=== PATIENT | female | born 1980 | race African-American/Black ===

== ENCOUNTER 2016-06-13 04:12 | Day surgery (SDC) | payer BC ==
[~2016-06-13] VITALS: Ht 149.9 cm; Wt 82.0 kg
[2016-06-13] MEDS ORDERED: ACETAMINOPHEN 325MG TABLET PO ONE (04:45)
[2016-06-13 05:17] LABS: BASOPHILS % 0.7 % (0.0-2.0); EOSINOPHILS % 0.4 % (0.0-5.0); HEMATOCRIT. 31.5 % (36.0-48.0); HEMOGLOBIN. 9.9 g/dL (12.0-16.0); LYMPHOCYTES % 24.6 % (20.0-50.0); MEAN CORPUSCULAR HEMOGLOBIN 19.7 pg (28.0-32.0); MEAN CORPUSCULAR HGB CONC 31.4 g/dL (31.0-37.0); MEAN CORPUSCULAR VOLUME 62.7 fL (81.0-99.0); MEAN PLATELET VOLUME 7.3 fl (7.4-10.4); MONOCYTES % 8.1 % (2.0-8.0); NEUTROPHILS % 66.2 % (40.0-76.0); PLATELET 341 x1000/uL (130-400); RED BLOOD CELL COUNT 5.03 mill/uL (4.2-5.4); RED CELL DISTRIBUTION WIDTH 16.5 % (11.6-14.6); WHITE BLOOD COUNT 7.8 x1000/uL (4.5-11.0)
[2016-06-13 05:21] LABS: INR 1.1
[2016-06-13 05:24] LABS: DIFFERENTIAL COMMENT 1
[2016-06-13 05:25] LABS: ADD RBC MORPHOLOGY YES
[2016-06-13 05:28] LABS: ALANINE AMINOTRANSFERASE 17 IU/L (13-61); ALBUMIN 3.4 g/dL (3.4-5.0); ANION GAP 12; CALCIUM 8.6 mg/dL (8.5-10.1); CARBON DIOXIDE 27 mEq/L (21-32); CHLORIDE 105 mEq/L (98-107); INDEX HEMOLYSI 1 (1-3); INDEX ICTERIC 1 (1-4); INDEX LIPEMIC 1 (1-3); UREA NITROGEN BLOOD 11 mg/dL (7-21); eGFR > 60 mL/min (>60)
[2016-06-13 05:42] LABS: CLARITY URINE CLEAR (CLEAR); COLOR URINE YELLOW (YELLOW); GLUCOSE URINE NEGATIVE (NEGATIVE); KETONES URINE NEGATIVE (NEGATIVE); LEUKOCYTE ESTERASE URINE NEGATIVE (NEGATIVE); NITRITE URINE NEGATIVE (NEGATIVE); OCCULT BLOOD URINE 1+ (NEGATIVE); PROTEIN URINE NEGATIVE (NEGATIVE); SPECIFIC GRAVITY URINE 1.017 (1.005-1.030)
[2016-06-13 05:56] LABS: HYPOCHROMASIA 1+; PLATELET ESTIMATE NORMAL
[2016-06-13 06:12] LABS: SQUAMOUS EPITHELIAL CELL URINE FEW /lpf (RARE/1+)
[2016-06-13 06:13] LABS: BACTERIA URINE NONE SEEN; RBC URINE 0-2 /hpf (0-2); WBC URINE 0-2 /hpf (0-2)
[2016-06-13] MEDS ORDERED: SODIUM CHLORIDE 0.9% 1,000 ML IV ONE (07:06)
[2016-06-13 08:24] LABS: HEMATOCRIT 31.4 % (36.0-48.0); HEMOGLOBIN 9.8 g/dL (12.0-16.0); MEAN CORPUSCULAR HEMOGLOBIN 19.3 pg (28.0-32.0); MEAN CORPUSCULAR HGB CONC 31.3 g/dL (31.0-37.0); MEAN CORPUSCULAR VOLUME 61.8 fL (81.0-99.0); PLATELET 366 x1000/uL (130-400); RED BLOOD CELL COUNT 5.08 mill/uL (4.2-5.4); RED CELL DISTRIBUTION WIDTH 16.5 % (11.6-14.6); WHITE BLOOD COUNT 7.5 x1000/uL (4.5-11.0)
[2016-06-13] MEDS ORDERED: LIDOCAINE HCL 1% 20ML VIAL (Pyxis) INJ ONE (10:04)
[2016-06-13] MEDS ORDERED: PROPOFOL 200MG/20ML VIAL IV ONE (10:04)
[2016-06-13] MEDS ORDERED: FENTANYL CITRATE/PF 50MCG/ML 2ML VIAL ONE ×2 (10:06→10:50)
[2016-06-13] MEDS ORDERED: MIDAZOLAM HCL 2 MG/2 ML VIAL ONE (10:06)
[2016-06-13] MEDS ORDERED: SUCCINYLCHOLINE CHLORIDE 200MG/10ML VIAL IV ONE (10:06)
[2016-06-13] MEDS ORDERED: ROCURONIUM BROMIDE 10MG/ML VIAL 5ML IV ONE (10:07)
[2016-06-13] MEDS ORDERED: CEFAZOLIN SODIUM 1000MG/VIAL ONE (10:18)
[2016-06-13] MEDS ORDERED: ONDANSETRON HCL 4MG/2ML VIAL IV PRN (10:45)
[2016-06-13] MEDS ORDERED: FENTANYL CITRATE/PF 50MCG/ML 2ML VIAL IV PRN (10:45)
[2016-06-13] MEDS ORDERED: ONDANSETRON HCL 4MG/2ML VIAL ONE (10:48)
[2016-06-13] MEDS ORDERED: METOCLOPRAMIDE HCL 10MG/2ML VIAL ONE (10:48)
[2016-06-13] MEDS ORDERED: GLYCOPYRROLATE 0.2 MG/ML 2ML VIAL ONE (10:55)
[2016-06-13] MEDS ORDERED: NEOSTIGMINE METHYLSULFATE 1MG/ML 10 ML VIAL ONE (10:55)
[2016-06-13] MEDS ORDERED: KETOROLAC 60MG/2ML VIAL IM ONE (11:37)
[2016-06-13] MEDS ORDERED: SKIN ADHESIVE 0.7 GM EA TOP ONE (11:50)
[2016-06-13] MEDS: HYDROMORPHONE HCL/PF 2MG/ML CPJ IV PRN ×4 (12:00→13:30)
[2016-06-13] MEDS ORDERED: METHOTREXATE SODIUM/PF 50 MG/2 ML VIAL IM SCH (12:00)
[2016-06-13] MEDS ORDERED: HYDROMORPHONE HCL/PF 2MG/ML CPJ ONE (12:10)
[2016-06-13 13:30] VITALS: BP 110/67
== END 2016-06-13 14:45 | disposition home or self-care (01) ==
LOC: ER 05:04 → OR 09:30 → ER 09:59 → OR 14:45
PROVIDERS: ATTEND Obstetrics & Gynecology Obstetrics
DX: O03.4 Incomplete spontaneous abortion without complication (principal); O00.10 Tubal pregnancy without intrauterine pregnancy; E11.9 Type 2 diabetes mellitus without complications; I10 Essential (primary) hypertension; I25.10 Atherosclerotic heart disease of native coronary artery without angina pectoris; J45.909 Unspecified asthma, uncomplicated; I48.91 Unspecified atrial fibrillation
CPT/HCPCS: 36415; 59151; 59812; 76801; 76817; 80053; 81001; 84702; 85025; 85027; 85610; 86850; 86900; 86901; 86920; 88304; 88305; 93005; G0168; J0330; J0690; J1170; J1885; J2250; J2405; J2710; J2765; J3010; J3490; J9260; J2704